=== PATIENT | male | born 1990 | race Caucasian/White ===

== ENCOUNTER 2020-01-06 09:40 | Day surgery (SDC) | payer OTHER ==
[2020-01-01 16:49] LABS: Absolute Lymphocytes (CBC) 2.1 K/uL (0.7-4.9); Basophils % 0.5 % (0-1.3); Hematocrit 48.4 % (39.6-49.0); Lymphocytes % 25.4 % (15.3-44.8); MPV 8.1 fL (7.6-11.3); RBC Red Blood Cell Count 5.39 M/uL (4.33-5.43)
[2020-01-01 17:03] LABS: Potassium 4.3 mmol/L (3.5-5.1)
[2020-01-06] MEDS ORDERED: Ringers Lactate 1,000 ML IV ONE (10:13)
[2020-01-06] MEDS ORDERED: CIPROFLOXACIN 400mg IV 400 MG/200 ML BAG IV ONE (10:13)
[2020-01-06] MEDS ORDERED: FENTANYL CITR 100 MCG/2 ML ONE (10:22)
[2020-01-06] MEDS ORDERED: propofoL 200 MG/20 ML VIAL IV ONE (10:22)
[2020-01-06] MEDS ORDERED: MIDAZOLAM HCL 2 MG/2 ML INJ ONE (10:22)
[2020-01-06] MEDS ORDERED: LIDOCAINE 2% MPF 5 ML VIAL ONE (10:22)
[2020-01-06] MEDS ORDERED: ROCURONIUM 50 MG/5 ML VIAL IV ONE (10:22)
[2020-01-06] MEDS ORDERED: dexAMETHasone 4 MG/ML VIAL ONE (10:23)
--- NOTE | 2020-01-06 12:04 | P.BOP ---
Preoperative diagnosis: left breast palplable mass, right chest wall x2 and back hand subq masses Postoperative diagnosis: same Primary procedure: 1. Left breast lumpectomy. 2. Excisional bx R anterio chest sub mass 2x2 cm Secondary procedure: 3. Excisional bx R lateral chest sub mass 2x2 cm Other procedure(s): 4. Excisional bx back sub mass 4x4 cm Alterations Expert: NILSA PRADO ([employer]) Estimated blood loss: <10cc Specimen: mass x 4 Findings: see dicta Anesthesia: General Complications: None Transferred to: Recovery Room Condition: Good
[2020-01-06] MEDS ORDERED: KETOROLAC 30 MG/ML INJ ONE (12:08)
[2020-01-06] MEDS ORDERED: MORPHINE 10 MG/ML VIAL ONE (12:11)
[2020-01-06 13:14] VITALS: BP 142/80; TEMP 96.1; O2SAT 98
[2020-01-06] MEDS ORDERED: TRAMADOL 37.5mg/APAP 325mg PER TAB ONE (13:16)
--- NOTE | 2020-01-18 00:15 | OP ---
Date of Procedure: 01/06/2020 Surgeon: Qasim Del Rio MD Preoperative Diagnoses: Left breast mass palpable, right chest wall x2, and manager background subcutaneous mass. Postoperative Diagnoses: Left breast mass palpable, right chest wall x2, and manager background subcutaneou s mass. Procedures: 1.Left breast lumpectomy. 2.Excisional biopsy of right anterior chest subcutaneous mass, 2 x 2 cm. 3.Excisional biopsy of right lateral chest subcutaneous mass, 2 x 2 cm. 4.Excisional biopsy of back subcutaneous mass, 4 x 4 cm. Estimated Blood Loss: Less than 10 mL. Anesthesia: General plus local. Indications: This is the case of a male, who comes to us with 4 different masses. They are increasi ng in size. One of them is on the left breast. He has still the 3 increasing in size and tender, an d he wants to take advantage of this when he wants to remove them since it is given pain and discomfo rt and they are increasing in size. Benefits, alternatives, and risks of 4 mass excision including l umpectomy of the left breast were fully explained, which include, but not limited to infection, bleed ing, damage to adjacent structures, anesthesia complication, recurrence, TN, and even . He also understands this may not relieve his symptoms. He might need more than one surgical intervention. He understands that he has to come back to the clinic to discuss the pathology, especially in the lef t breast since we are doing a lumpectomy to rule out cancer. We the instruments to all the places to avoid cross contamination. The area of concern was marked by me and the patient in all th e areas. Description Of Procedure: The patient was brought to the operating room and placed supine position. Anesthesia was done without complication. In order for us to be able to do all this masses, we did the first put him in lateral decubitus position due to the back mass first. Under aseptic condition using lidocaine injection for local anesthetic and after prepping and draping the back in the usual s terile fashion, we proceeded to make an incision all the way down to subcutaneous tissue. We noticed clearly defined subcutaneous mass present deep into the subcutaneous tissues about 4 x 4 cm. The ma ss was completely excised with the help of blunt dissection. The area was irrigated and then this pl [place] was closed with a 3-0 chromic and 3-0 chromic subcuticular too with Steri-Strips on top. Sponge count and instrument counts were correct. Hemostasis was obtained before closure. After that, we th en proceeded to scrub out once again, put him on supine position and scrubbed it once again. Once ag ain, we the instruments to avoid cross contamination. This was done in the sequence. In t hat case, we prepped the chest and breast in usual sterile fashion. We proceeded first with the left breast lumpectomy. The area was previously palpated. We made an incision in that area down to alma st tissue and the mass was removed with gross negative margins. The area was irrigated and we procee ded to closed that with a combination of 2-0 chromic and then Steri-Strips on top after hemostasis an d local anesthesia was applied. The patient tolerated that procedure well. Once again, we changed o ur gloves and we proceeded to go into the right upper chest. Both areas were prepped and draped in s terile fashion. They have different incisions, but both of them using the same technique, which cons isted of local anesthetic, sharp incision of the skin and then after that going down to the subcutane ous tissue, removed the mass with gross negative margins and then closed the area with 3-[address] hemostasis and irrigation was done. The second mass was done using same technique. The patient tolerated each procedure well. The patient was sent to recovery in stable condition after putting st erile dressings over the area. Disposition: Home. Activity: As tolerated. No heavy lifting. Plan: Follow up in my office in 1 week. Call for appointment at [phone]. Keep area dry for 48 barbara rs, then may shower. Keep Steri-Strips intact. JULES/SHAWNA Voice ID: [id number] Report ID: [id number]
== END 2020-01-06 13:45 | disposition home or self-care (01) ==
LOC: OR 09:40
PROVIDERS: ATTEND Surgery
PROC: 0JB60ZZ Excision of Chest Subcutaneous Tissue and Fascia, Open Approach (ICD-10-PCS; 2020-01-06)
PROC: 0HBU0ZZ Excision of Left Breast, Open Approach (ICD-10-PCS; principal; 2020-01-06 13:00)
PROC: 0JB70ZZ Excision of Back Subcutaneous Tissue and Fascia, Open Approach (ICD-10-PCS; 2020-01-06 13:00)
DX: N63.0 Unspecified lump in unspecified breast (principal); R22.2 Localized swelling, mass and lump, trunk; Z20.828 Contact with and (suspected) exposure to other viral communicable diseases; K21.9 Gastro-esophageal reflux disease without esophagitis; F32.9 Major depressive disorder, single episode, unspecified
CPT/HCPCS: 85025; 80048; 36415; 88304; 19301; 11404; 11402 ×2; U0002; J2704; J1100; J2250; J3010; J7120; J0744; 88305

== ENCOUNTER 2020-03-13 18:22 | Emergency (ER) | payer OTHER ==
[2020-03-13] MEDS ORDERED: ACETAMINOPHEN 500 MG TAB ONE (23:31)
--- NOTE | 2020-03-14 00:31 | ER ---
Nurse's Notes [facility] Name: Denilson Lopez Age: 29 yrs Sex: Male : 1990 Arrival Date: 03/13/2020 Time: 18:23 Bed 19 Private MD: Diagnosis: Viral Syndrome Presentation: 03/13 19:18 Chief complaint: Patient states: Body aches, SOB, fatigue, weakness, VASQUEZ, scratchy ll1 throat. nasal congestion for 2 days. Had covid end of September, feels the same. Coronavirus screen: Client denies travel out of the [place] in the last 14 days. congestion, fatigue, headache, sore throat, Client presents with at least one sign or symptom that may indicate coronavirus-19. Standard/surgical mask placed on the client. Ebola Screen: Patient denies travel to an Ebola-affected area in the 21 days before illness onset. Initial Sepsis Screen: Does the patient meet any 2 criteria? No. Patient's initial sepsis screen is negative. Does the patient have a suspected source of infection? Yes: Productive cough/pneumonia. Risk Assessment: Do you want to hurt yourself or someone else? Patient reports no desire to harm self or others. Onset of symptoms was March 12, 2020. 19:18 Method Of Arrival: Ambulatory ll1 19:18 Acuity: RICHI 3 ll1 Historical: - Allergies: 19:21 PENICILLINS; ll1 19:21 Codeine; ll1 - PMHx: 19:21 covid 09/2019; ll1 - PSHx: 19:21 Tonsillectomy; Adenoids; ll1 - Immunization history:: Flu vaccine is up to date. - Social history:: Smoking status: Patient denies any tobacco usage or history of. Screenin:50 Abuse screen: Denies threats or abuse. Denies injuries from another. Nutritional ca1 screening: No deficits noted. Tuberculosis screening: No symptoms or risk factors identified. Fall Risk None identified. Assessment: 22:50 General: Appears in no apparent distress. comfortable, Behavior is calm, cooperative, ca1 appropriate for age, Reports chills for feeling ill for fatigue for 12-24 hours. Pain: Denies pain. Neuro: Level of Consciousness is awake, alert, obeys commands, Oriented to person, place, time, situation. Cardiovascular: Heart tones S1 S2 present Capillary refill < 3 seconds Patient's skin is warm and dry. Rhythm is regular. Respiratory: Reports shortness of breath cough that is Airway is patent Respiratory effort is even, unlabored, Respiratory pattern is regular, symmetrical, Breath sounds are clear bilaterally. GI: Abdomen is round non-distended, Bowel sounds present X 4 quads. Abd is soft and non tender X 4 quads. : No signs and/or symptoms were reported regarding the genitourinary system. EENT: No signs and/or symptoms were reported regarding the EENT system. Derm: Skin is intact, is healthy with good turgor, Skin is pink, warm \T\ dry. Musculoskeletal: Circulation, motion, and sensation intact. Capillary refill < 3 seconds. 23:37 Reassessment: Patient appears in no apparent distress at this time. Patient and/or ca1 family updated on plan of care and expected duration. Pain level reassessed. Patient is alert, oriented x 3, equal unlabored respirations, skin warm/dry/pink. 03/14 00:38 Reassessment: Patient appears in no apparent distress at this time. Patient and/or wh family updated on plan of care and expected duration. Pain level reassessed. Patient is alert, oriented x 3, equal unlabored respirations, skin warm/dry/pink. Vital Signs: 03/13 19:18 BP 140 / 94; Pulse 89; Resp 18; Temp 98.7; Pulse Ox 99% ; Weight 129.27 kg; Height 6 ll1 ft. 1 in. (185.42 cm); Pain 4/10; 23:09 BP 143 / 95; Pulse 83; Resp 16 S; Pulse Ox 100% on R/A; ca1 23:37 BP 130 / 80; Pulse 81; Resp 16 S; Pulse Ox 100% on R/A; ca1 03/14 00:38 BP 117 / 66; Pulse 64; Resp 18; Pulse Ox 96% on R/A; wh 03/13 19:18 Body Mass Index 37.60 (129.27 kg, 185.42 cm) ll1 ED Course: 03/13 18:23 Patient arrived in ED. ag5 19:20 Triage completed. ll1 19:21 Arm band placed on. ll1 22:36 Samson Thornton MD is Attending Physician. mh7 22:42 Nina Mijares RN is Primary Nurse. ca1 22:50 Patient has correct armband on for positive identification. Bed in low position. Call ca1 light in reach. Side rails up X 1. Pulse ox on. NIBP on. Warm blanket given. 22:57 Flu and/or RSV swab sent to lab. Strep swab sent to lab. Patient maintains SpO2 jp3 saturation greater than 95% on room air. 23:00 COVID swab sent to lab. jp3 23:15 X-ray(s) taken. ca1 23:51 Chest Single View XRAY In Process Unspecified. EDWV 03/14 00:38 No provider procedures requiring assistance completed. Patient did not have IV access during this emergency room visit. Administered Medications: 03/13 23:17 Drug: Tylenol 1000 mg Route: PO; [facility] 03/14 00:39 Follow up: Response: No adverse reaction; Pain is decreased Outcome: 00:30 Discharge ordered by . [facility] 00:38 Discharged to home ambulatory. 00:38 Condition: stable 00:38 Discharge instructions given to patient, Instructed on discharge instructions, follow up and referral plans. medication usage, POC Demonstrated understanding of instructions, follow-up care, medications, POC Prescriptions given X 1. 00:39 Patient left the ED. Addendum: 03/16/2020 20:32 Addendum: COVID-19 Result: Negative result given to RN to notify pt. Contacted by: Dr. paola Sol. Notified pt of negative COVID 19 swab results. Pt advised that even with a negative test result they should remain in isolation until symptom free for 3 days without medication. Pt also advised to return to the ED for worsening symptoms. Signatures: Dispatcher [employer] [facility] Deana Duran, Arsenio Sigala RN Kristian Delatorre jp3 Nina Mijares RN RN ca1 Marianela Wiseman ag5 Mirna Abdul RN RN ll1 Samson Thornton MD MD 7
--- NOTE | 2020-03-14 00:31 | EDPHYS ---
Physician Documentation [facility] Name: Denilson Lopez Age: 29 yrs Sex: Male : 1990 Arrival Date: 03/13/2020 Time: 18:23 Bed 19 Private MD: ED Physician Samson Thornton HPI: 03/13 23:08 This 29 yrs old Male presents to ER via Ambulatory with complaints of mh7 Shortness Of Breath, Body Aches. 23:08 The patient or guardian reports cough, that is intermittent, difficulty breathing, flu mh7 symptoms, myalgias, sore throat, nasal congestion. Onset: The symptoms/episode began/occurred 2 day(s) ago. 23:10 Severity of symptoms: At their worst the symptoms were mild, yesterday, in the [facility] emergency department the symptoms are unchanged. Modifying factors: The symptoms are alleviated by nothing, the symptoms are aggravated by nothing. Associated signs and symptoms: Pertinent positives: rhinorrhea, sore throat, Pertinent negatives: chest pain, diarrhea, ear ache, fever, nausea, vomiting. The patient has experienced a previous episode, approximately 5 months ago. Historical: - Allergies: 19:21 PENICILLINS; ll1 19:21 Codeine; ll1 - PMHx: 19:21 covid 09/2019; ll1 - PSHx: 19:21 Tonsillectomy; Adenoids; ll1 - Immunization history:: Flu vaccine is up to date. - Social history:: Smoking status: Patient denies any tobacco usage or history of. ROS: 23:10 Constitutional: Negative for fever, chills, and weight loss, Eyes: Negative for injury, mh7 pain, redness, and discharge, Neck: Negative for injury, pain, and swelling, Cardiovascular: Negative for chest pain, palpitations, and edema, Abdomen/GI: Negative for abdominal pain, nausea, vomiting, diarrhea, and constipation, Back: Negative for injury and pain, : Negative for injury, bleeding, discharge, and swelling, MS/Extremity: Negative for injury and deformity, Skin: Negative for injury, rash, and discoloration, Neuro: Negative for headache, weakness, numbness, tingling, and seizure, Psych: Negative for depression, anxiety, suicide ideation, homicidal ideation, and hallucinations, Allergy/Immunology: Negative for hives, rash, and allergies, Endocrine: Negative for neck swelling, polydipsia, polyuria, polyphagia, and marked weight changes, Hematologic/Lymphatic: Negative for swollen nodes, abnormal bleeding, and unusual bruising. Exam: 23:10 Constitutional: This is a well developed, well nourished patient who is awake, alert, mh7 and in no acute distress. Head/Face: Normocephalic, atraumatic. Eyes: Pupils equal round and reactive to light, extra-ocular motions intact. Lids and lashes normal. Conjunctiva and sclera are non-icteric and not injected. Cornea within normal limits. Periorbital areas with no swelling, redness, or edema. ENT: Nares patent. No nasal discharge, no septal abnormalities noted. Tympanic membranes are normal and external auditory canals are clear. Oropharynx with no redness, swelling, or masses, exudates, or evidence of obstruction, uvula midline. Mucous membranes moist. Neck: Trachea midline, no thyromegaly or masses palpated, and no cervical lymphadenopathy. Supple, full range of motion without nuchal rigidity, or vertebral point tenderness. No Meningismus. Chest/axilla: Normal chest wall appearance and motion. Nontender with no deformity. No lesions are appreciated. Cardiovascular: Regular rate and rhythm with a normal S1 and S2. No gallops, murmurs, or rubs. Normal PMI, no JVD. No pulse deficits. Respiratory: Lungs have equal breath sounds bilaterally, clear to auscultation and percussion. No rales, rhonchi or wheezes noted. No increased work of breathing, no retractions or nasal flaring. Abdomen/GI: Soft, non-tender, with normal bowel sounds. No distension or tympany. No guarding or rebound. No evidence of tenderness throughout. Back: No spinal tenderness. No costovertebral tenderness. Full range of motion. Skin: Warm, dry with normal turgor. Normal color with no rashes, no lesions, and no evidence of cellulitis. MS/ Extremity: Pulses equal, no cyanosis. Neurovascular intact. Full, normal range of motion. Neuro: Awake and alert, GCS 15, oriented to person, place, time, and situation. Cranial nerves II-XII grossly intact. Motor strength 5/5 in all extremities. Sensory grossly intact. Cerebellar exam normal. Normal gait. Psych: Awake, alert, with orientation to person, place and time. Behavior, mood, and affect are within normal limits. Vital Signs: 19:18 BP 140 / 94; Pulse 89; Resp 18; Temp 98.7; Pulse Ox 99% ; Weight 129.27 kg; Height 6 ll1 ft. 1 in. (185.42 cm); Pain 4/10; 23:09 BP 143 / 95; Pulse 83; Resp 16 S; Pulse Ox 100% on R/A; ca1 23:37 BP 130 / 80; Pulse 81; Resp 16 S; Pulse Ox 100% on R/A; ca1 03/14 00:38 BP 117 / 66; Pulse 64; Resp 18; Pulse Ox 96% on R/A; wh 03/13 19:18 Body Mass Index 37.60 (129.27 kg, 185.42 cm) ll1 MDM: 00:28 Differential Diagnosis: Bronchitis Influenza Upper Respiratory Infection Sinusitis [facility] Pharyngitis Allergic Rhinitis Viral Syndrome Pneumonia. Data reviewed: vital signs, nurses notes, lab test result(s), Flu: negative radiologic studies, plain films. Data interpreted: Pulse oximetry: on room air is 100 %. Interpretation: normal. Counseling: I had a detailed discussion with the patient and/or guardian regarding: the historical points, exam findings, and any diagnostic results supporting the discharge/admit diagnosis, lab results, radiology results, the need for outpatient follow up, to return to the emergency department if symptoms worsen or persist or if there are any questions or concerns that arise at home. Response to treatment: the patient's symptoms have resolved after treatment, the patient's blood pressure is in an acceptable range, mental status has returned to baseline, the patient no longer shows bradycardia, the patient is not short of breath, the patient is not tachycardic, the patient's pain is gone, the patient's temperature has normalized. 00:30 Patient medically screened. [facility] 03/13 22:49 Order name: Influenza Screen (a \T\ B); Complete Time: 00:27 [facility] 03/13 22:49 Order name: Rapid Strep; Complete Time: 23:52 [facility] 03/13 22:49 Order name: COVID-19 [facility] 03/13 22:49 Order name: Chest Single View XRAY [facility] 03/13 23:52 Order name: Throat Culture EDMS Administered Medications: 03/13 23:17 Drug: Tylenol 1000 mg Route: PO; ca1 03/14 00:39 Follow up: Response: No adverse reaction; Pain is decreased wh Disposition: 03/14/20 00:30 Discharged to Home. Impression: Viral Syndrome. - Condition is Stable. - Discharge Instructions: Viral Respiratory Infection, [id number]. - Prescriptions for Tessalon Perles 100 mg Oral Capsule - take 1 capsule by ORAL route every 8 hours As needed; 15 capsule. - Work release form, Medication Reconciliation Form, Thank You Letter, Antibiotic Education, Prescription Opioid Use form. - Follow up: Private Physician; When: 1 - 2 days; Reason: Worsening of condition, Recheck today's complaints, Continuance of care, Re-evaluation by your physician. - Problem is new. - Symptoms have improved. Signatures: Dispatcher [employer] ED Arsenio Aguilera Nina Mijares RN RN ca1 Mirna Abdul RN RN ll1 Samson Thornton MD MD mh7 Corrections: (The following items were deleted from the chart) 03/13 23:11 23:08 Severity of symptoms: [place] [id number] 03/14 00:39 00:30 03/14/2020 00:30 Discharged to Home. Impression: Viral Syndrome. Condition is wh Stable. Forms are Medication Reconciliation Form, Thank You Letter, Antibiotic Education, Prescription Opioid Use. Follow up: Private Physician; When: 1 - 2 days; Reason: Worsening of condition, Recheck today's complaints, Continuance of care, Re-evaluation by your physician. Problem is new. Symptoms have improved. 7
[2020-03-14 00:51] VITALS: TEMP 98.7
[2020-03-14 00:55] VITALS: BP 117/66; O2SAT 96
--- NOTE | 2020-03-14 12:38 | RAD REPORT ---
EXAM DESCRIPTION: RAD - Chest Single View - 03/13/2020 11:51 pm CLINICAL HISTORY: COUGH Chest pain. COMPARISON: No comparisons FINDINGS: Portable technique limits examination quality. The lungs are grossly clear. The heart is normal in size. No displaced fractures. IMPRESSION: No acute intrathoracic process suspected.
== END 2020-03-14 00:39 | disposition home or self-care (01) ==
LOC: ER 18:22
DX: B34.9 Viral infection, unspecified (principal); Z20.828 Contact with and (suspected) exposure to other viral communicable diseases; Z88.0 Allergy status to penicillin; Z88.6 Allergy status to analgesic agent; Z86.19 Personal history of other infectious and parasitic diseases
CPT/HCPCS: 87070; 87081; 87804 ×2; 71045; 99284; U0002

== ENCOUNTER 2024-11-01 05:57 | Day surgery (SDC) | payer OTHER ==
[2024-10-30 09:25] LABS: Absolute Lymphocytes (CBC) 1.6 K/uL (0.7-4.9); Hematocrit 45.0 % (39.6-49.0); Hemoglobin 16.0 g/dL (13.6-17.9); MCH 31.4 pg (27.0-35.0); MCHC 35.5 g/dL (32.0-36.0); MCV 88.6 fL (80-100); MPV 8.1 fL (7.6-11.3); Nucleated RBC Absolute Count 0.0 (0-0); Nucleated Red Blood Cells % 0.1 % (0-0); RBC Red Blood Cell Count 5.08 M/uL (4.33-5.43); White Blood Count 6.00 thou/uL (4.3-10.9)
[2024-10-30 09:35] LABS: Anion Gap 5.6 mEq/L (5.0-15.0); BUN Blood Urea Nitrogen 12.0 mg/dL (7-18); Glucose Level 112.0 mg/dL (74-106); Potassium 3.6 mEq/L (3.5-5.1)
[2024-11-01] MEDS ORDERED: FENTANYL CITR 100 MCG/2 ML ONE ×2 (06:10→09:22)
[2024-11-01] MEDS ORDERED: LIDOCAINE 1% MPF 5 ML VIAL ONE (06:10)
[2024-11-01] MEDS ORDERED: MIDAZOLAM HCL 2 MG/2 ML INJ ONE (06:10)
[2024-11-01] MEDS ORDERED: BUPIVACAINE 0.5% PF 10 ML VIAL ONE (06:10)
[2024-11-01] MEDS ORDERED: EPINEPHRINE 1 MG/ML VIAL ONE (06:11)
[2024-11-01] MEDS ORDERED: Ringers Lactate 1,000 ML IV ONE (06:13)
[2024-11-01] MEDS ORDERED: ONDANSETRON 4 MG/2 ML VIAL ONE (06:59)
[2024-11-01] MEDS ORDERED: LIDOCAINE 2% MPF 5 ML VIAL ONE (06:59)
[2024-11-01] MEDS ORDERED: ROCURONIUM 50 MG/5 ML VIAL IV ONE (06:59)
[2024-11-01] MEDS ORDERED: KETOROLAC 30 MG/ML INJ ONE (06:59)
[2024-11-01] MEDS ORDERED: VECURONIUM 10 MG/VIAL IV ONE (08:12)
[2024-11-01] MEDS ORDERED: NS 0.9% VIAL 10 ML ONE ×3 (08:12→08:28)
[2024-11-01] MEDS: CEFAZOLIN SODIUM 1 GM/VIAL ONE (08:26)
[2024-11-01] MEDS ORDERED: CEFAZOLIN SODIUM 1 GM/VIAL ONE (08:28)
[2024-11-01] MEDS ORDERED: GLYCOPYRROLATE 0.2 MG/ML SYR ONE (09:20)
[2024-11-01] MEDS ORDERED: NEOSTIGMINE 1 MG/ML -10 ML VIAL ONE (09:20)
[2024-11-01 10:14] VITALS: O2SAT 95
[2024-11-01 13:02] VITALS: BP 111/60; TEMP 97.1
--- NOTE | 2024-11-01 13:31 | OP ---
Date of Procedure: 11/01/2024 Surgeon: Vinod Yung MD Preoperative Diagnosis: Right shoulder pain with probable AC joint pathology and impingement with bu rsitis and tendinopathy, possible tear or biceps pathology. Postoperative Diagnoses: 1. AC joint pathology. 2. Subacromial impingement. 3. Bursal hypertrophy. 4. Some intra-articular fraying. Procedure: 1. Right shoulder arthroscopy with debridement of some intra-articular fraying, limited. 2. Mini open subacromial decompression. 3. Distal clavicle resection. 4. Bursal debridement. Estimated Blood Loss: 20 cc. Complications: There were no complications. Indications For Operation: The patient came to see me. He had been seeing another physician for joaquin te some time a number of years. He has had multiple corticosteroid injections as well as nonoperativ e management including rehabilitative exercises and inflammatory medications. However, his pain is s till a 6 on a 1-10 scale. He has an MRI which does not demonstrate an overt tear, however, does demo nstrate inflammation and bursitis in the region of the shoulder. I had not seen in the past for this and x-rays appeared normal. Discussed possible further conservative care. However, at this point, I believe he is completed very extensive conservative management without assistance. Risks, benefits , and alternatives of different methods of treating have been discussed with him. He states he under stands things as presented and opts for surgical intervention. Description Of Procedure: The patient taken to the operating room, placed in supine position. Gener al anesthesia was obtained by staff. Following this, he was then placed in the beach chair position. It should be noted that he had a block earlier in the holding area. Range of motion of the shoulde rs full and right upper extremity was then prepped and draped in usual sterile fashion for procedure. After this, a standard posterior portal was then made with atraumatic introduction of the arthrosSynchronica pic camera in 1 pass without difficulty. His shoulder is quite large, but an anterior arthroscopy po rtal was easily established for placement as a working portal. The shoulder was examined with the felton maritza. There was found to be no labral injury. There was some irritation around the anterior labrum, however, was not displaced or displaceable. There was some fraying near the biceps outlet. Shaver was used to very lightly debride any excessive synovial tissue or any fraying. Following this, arthr oscopic instruments are removed and the posterior portal was stapled. The shoulder was then re-prepp ed and all instruments and equipment were changed. Anatomic landmarks were a little difficult becaus e of the patient's size, however, standard anterior incision was made carefully through skin and soft tissue. This does integrate with the anterior portal. Adipose tissue was moved out of the way and used as a working window and the leading edge of the acromion is easily palpated as well as the AC patricia int. The deltoid was then removed from the leading edge of the acromion back toward the AC joint. Th e underlying rotator cuff was protected with a Fly. There was found to be a large anterior and inferior projecting bony prominence. This was protected as the saw removes this and palpation of the undersurface of the acromion appears very smooth. However, small edges removed using a saw as well as a rasp. Attention was then turned to the AC joint, which appeared to be enlarged and decision mad e to continue with distal lateral excision as this is a possible source of the patient's pain. The d istal clavicle was then exposed by gently reflecting off the deltoid and the Fly was used as the distal clavicle was removed, making sure that all osteophytes are taken as well. A finger was place d within the joint and there was no impingement with cross-arm adduction and all bony fragments had b een removed with retention of the inferior ligaments. After this, attention was turned back to the r otator cuff. The bursa itself was quite hypertrophic and removed using a rongeur with careful protec tion of the rotator cuff. The rotator cuff itself as well as footprint were inspected. There was fo und to be no tearing or abnormal insertion. The wound was then gently irrigated and the deltoid was repaired back using a combination of heavy Vicryl as well as Ethibond through bone tunnels. The woun d was again irrigated. Skin was closed using Vicryl followed by natasha. The patient was then placed in Aquacel dressing, awakened, and taken to recovery room in good condition. There were no complications. SE/MODL Voice ID: [id number] Report ID: [id number]
[2024-11-01] MEDS ORDERED: HYDROMORPHONE HCL 0.5 MG/0.5 ML INJ ONE (14:09)
== END 2024-11-01 11:25 | disposition home or self-care (01) ==
LOC: OR 05:57
PROVIDERS: ATTEND Orthopaedic Surgery
PROC: 0PB90ZZ Excision of Right Clavicle, Open Approach (ICD-10-PCS; 2024-11-01)
PROC: 0PB94ZZ Excision of Right Clavicle, Percutaneous Endoscopic Approach (ICD-10-PCS; principal; 2024-11-01 07:30)
DX: M75.81 Other shoulder lesions, right shoulder (principal); M25.511 Pain in right shoulder; M25.811 Other specified joint disorders, right shoulder; M75.51 Bursitis of right shoulder
CPT/HCPCS: 29822; 23120; 23130; 93005; 85025; 80048; 36415; A4216 ×3; J2704; J2710; J2003 ×2; J2250; J3010 ×2; J1100 ×2; J0171; J2405; J7120; J0690 ×2; J1171